=== PATIENT | male | born 1975 | race Caucasian/White ===

== ENCOUNTER 2017-01-06 18:18 | Inpatient (IN) | payer OTHER ==
--- NOTE | ~2017-01-06 | EKG ---
PATIENT: MICHAEL AN UNIT #: [id number] Ventricular Rate: 96 BPM Atrial Rate: 96 BPM P-R Interval: 206 ms QRS Duration: 102 ms Q-T Interval: 406 ms QTC Calculation(Bezet): 512 ms P [place]: 60 degrees Calculated R [place]: 21 degrees Calculated T [place]: 48 degrees Diagnosis Line: Normal sinus rhythm Diagnosis Line: Minimal voltage criteria for LVH, may be normal Diagnosis Line: variant Diagnosis Line: Prolonged QT Diagnosis Line: Abnormal ECG Diagnosis Line: When compared with ECG of 07-JAN-2017 07:26, Diagnosis Line: (unconfirmed) Diagnosis Line: No significant change was found Diagnosis Line: Confirmed by ADAMA BEAL MD ([id number]) on Diagnosis Line: 01/08/2017 11:04:27 PM INTERPRETING MD: BLAZE
--- NOTE | ~2017-01-06 | CR63 ---
[facility] A Service of [facility] & [facility] RADIOLOGY TEXT RESULTS PATIENT: MICHAEL AN LOCATION: [facility] 316-01 : [birth year] UNIT #: [id number] AGE: [address]: Sahil To MD SEX: M ORDER DR: [id number] [facility] [address] [place] [address] [facility]. [place], [place] [address] [id number] I MR#: [id number] Acc #: [id number] NAME: MICHAEL AN : 1975 SEX: M STUDY DATE/TIME: 01/07/2017 9:15 UNIT: [address] ROOM: [facility] STUDY DESCRIPTION: CR Chest 2 View Attending Physician: Sahil To M.D. Ordering Physician: Jessie Ch M.D. Primary Care Physician: No Primary Care Physician MEDICAL IMAGING REPORT This report is preliminary unless electronic signature is present EXAM Chest, PA and lateral, 2 views. DATE OF STUDY 01/08/2016 COMPARISON STUDIES 01/07/2016 CLINICAL HISTORY 1 day history of short of air and weakness. FINDINGS Persistent vascular congestion right greater than left. No effusion or pneumothorax or consolidation. Heart size upper limits of normal. No substantial change since 01/06/2017. Dictated by... Esau Malin M.D. THIS IS AN ELECTRONICALLY VERIFIED REPORT Esau Malin M.D. at 01/07/2017 3:49 PM TEV/raymond TD: 01/07/2017 11:37 JOB #: [id number] MEDICAL IMAGING REPORT Page 1 of 1 COPY
--- NOTE | ~2017-01-06 | DS ---
Unit #: [id number] #: [id number] Patient: MICHAEL AN [id number] [address] [place], [place] [address] [id number] I MR#: [id number] NAME: MICHAEL AN ROOM: 316 Age: 41 Sex: M Admission Date: 01/06/2017 : 1975 Discharge Date: 01/08/2017 Attending Physician: Sahil To M.D. Primary Care Physician: No Primary Care Physician DISCHARGE SUMMARY DISCHARGE DIAGNOSES 1. Unintentional overdose with fentanyl. 2. Acute hypoxic respiratory failure, resolved. 3. Likely aspiration pneumonia. 4. Elevated troponin. 5. Heroin abuse. 6. Acute kidney injury, prerenal in nature and is resolved at this time. 7. Elevated liver function test: Hepatitis panel is still pending at this time. CONSULTANTS None. PROCEDURES None. IMAGING Chest x-ray on January 06, 2017 - impression is borderline cardiac size with low lung volumes and probable generalized atelectasis. A repeat better inspiratory result frontal view of the departmental two-view chest would be recommended at this point when clinically appropriate given the limited nature of this exam. We have no comparisons. Two-view chest x-ray on 01/07. Findings - persistent vascular congestion, right greater than left. No effusion or pneumothorax or consolidation. Heart size upper limits of normal. No substantial change since 01/06/17. LABORATORY On the day of discharge, patient's labs include glucose 107, BUN 7, creatinine 0.9, sodium 136, potassium 4.2, chloride 105, CO2 24, calcium is 8.9, magnesium 2.1. CBC with WBC of 9.5, RBC 5.29, hemoglobin 14.5, hematocrit is 43.3, MCV is 81.9, MCH of 27.4, MCHC of 33.5, RDW is 14.3, platelets of 221, MPV of 3.9. HOSPITAL COURSE Patient is a 41-year-old male with no past medical history who was brought by EMS due to drug overdose. He was given 2 mg of IV Narcan and had received saline bolus. Patient, when awakened, admits to abusing heroin but states that he used a clean needle. Chest x-ray was done, worrisome for atelectasis versus pneumonia. A urine drug screen was positive for amphetamine. Patient was also noted to have increased creatinine on admission with 1.9. He was hypoxic with oxygen saturation documented at Unit #: [id number] #: [id number] Patient: MICHAEL AN 88% on admission. He was admitted for likely aspiration pneumonia and drug overdose. He was placed on empiric antibiotics with Zosyn. At this time blood culture, which was drawn, has been negative to date. Patient is no longer needing oxygen. Oxygen saturations are 98% to 100% on room air. Patient's initial troponin was detectable at 0.10 and has been trending down to 0.07 and stays at 0.06. It was felt that this was likely due to the illicit drugs the patient had been abusing. At this time, patient has no symptoms of nausea, vomiting, diarrhea nor chest pain. He is not requiring oxygen. He does not appear acutely ill. Have ordered an echo to be done. If this echo is normal, patient may be discharged home in stable condition. If this is abnormal in any way, we will obtain a cardiology consult. DISCHARGE ACTIVITIES None restricted. Patient may resume activities with ambulation every day as was prior to hospitalization. DIET None restricted. Patient may resume heart healthy diet as was prior to hospitalization. I have stressed to patient the need to abstain from IV drug use. DISCHARGE MEDICATIONS Levaquin 750 mg orally daily for the next seven days. PROGNOSIS Poor given poor insight into his actual medical problems at this time. Dictated by... Catherine Bridges PA-C for Hamida Santillan TD: 01/11/2017 07:34 JOB #: [id number] DISCHARGE SUMMARY Page 1 of 1 X X DISCHARGE SUMMARY
--- NOTE | ~2017-01-06 | CR72 ---
[facility] A Service of [facility] RADIOLOGY TEXT RESULTS PATIENT: MAK AN LOCATION: [facility] 316-01 : [birth year] UNIT #: [id number] AGE: [address]: Sahil To MD SEX: M ORDER DR: [id number] [address] [address] [id number] I MR#: [id number] Acc #: [id number] NAME: MAK AN : 1975 SEX: M STUDY DATE/TIME: 01/06/2017 18:00 UNIT: SEDOF ROOM: [facility] STUDY DESCRIPTION: CR Chest Single View Portable Attending Physician: Jessie Ch M.D. Ordering Physician: Magdalena Packer M.D. Primary Care Physician: No Primary Care Physician MEDICAL IMAGING REPORT This report is preliminary unless electronic signature is present. EXAM Frontal chest, 01/06/2017 INDICATIONS A 41-year-old male with cough, drug overdose, unconscious. No additional history available due to patient functional status. TECHNIQUE Frontal chest no comparisons. FINDINGS Cardiac silhouette is borderline in size. Lung volumes are low, and there is bronchovascular crowding. There is no distinct effusion or pneumothorax. Probable generalized atelectatic changes in the perihilar mid and lower lung zones bilaterally. IMPRESSION Borderline cardiac size with low lung volumes and probable generalized atelectasis. A repeat better inspiratory result frontal view or departmental two-view chest would be recommended for this patient when clinically appropriate given the limited nature of this exam. We have no comparisons. Dictated by... Mak Holt M.D. THIS IS AN ELECTRONICALLY VERIFIED REPORT Mak Holt M.D. at 01/07/2017 7:27 AM Devan [facility] A Service of [facility] & [facility] RADIOLOGY TEXT RESULTS PATIENT: MAK AN LOCATION: [facility] 316-01 : [birth year] UNIT #: [id number] AGE: [address]: Sahil To MD SEX: M ORDER DR: TD: 01/06/2017 20:42 JOB #: [id number] MEDICAL IMAGING REPORT Page 1 of 1
--- NOTE | ~2017-01-06 | EKG ---
PATIENT: MICHAEL AN UNIT #: [id number] Ventricular Rate: 77 BPM Atrial Rate: 77 BPM P-R Interval: 148 ms QRS Duration: 110 ms Q-T Interval: 436 ms QTC Calculation(Bezet): 493 ms P [place]: 59 degrees Calculated R [place]: 32 degrees Calculated T [place]: 53 degrees Diagnosis Line: Normal sinus rhythm Diagnosis Line: Minimal voltage criteria for LVH, may be normal Diagnosis Line: variant Diagnosis Line: Borderline ECG Diagnosis Line: No previous ECGs available Diagnosis Line: Confirmed by ADAMA BEAL MD ([id number]) on Diagnosis Line: 01/08/2017 11:00:42 PM INTERPRETING MD: BLAZE
--- NOTE | ~2017-01-06 | HP ---
Unit #: [id number] #: [id number] Patient: MICHAEL AN [id number] [address] [place], [place] [address] [id number] I MR#: [id number] NAME: MICHAEL AN ROOM: 316 Age: 41 Sex: M Admission Date: 01/06/2017 : 1975 Attending Physician: Jessie Ch M.D. Primary Care Physician: Primary Care Physician No HISTORY AND PHYSICAL CHIEF COMPLAINT Unintentional opiate overdose. HISTORY OF PRESENT ILLNESS This 41-year-old male who has a history of polysubstance abuse, was transferred from [facility] emergency department following an overdose. Patient is somnolent, and I have to prompt him many times to awaken and answer my questions. He abuses heroin, uses clean needles. Initially, he stated he only used intermittently, but later stated that he uses on a daily basis. He was given a substance today which he injected. I am not sure what transpired afterward. All that I know is that EMS was called who administered 4 mg of nasal Narcan. He was taken to [facility] emergency department at about 4:50 p.m. this afternoon where he required another 2 mg of IV Narcan. He was treated with 2 liters of saline bolus and given a dose of Zosyn for a possibly abnormal chest x-ray. Urine toxicology screen is only positive for amphetamines. I asked the patient about this, and he believes that the opiate that he was given today was different than his usual heroin. I am suspicious that he could have been given fentanyl. Labs show acute kidney injury, an elevated LFTs along with an elevated white blood cell count. Chest x-ray is equivocal. PAST MEDICAL HISTORY 1. Polysubstance abuse. 2. Previous concussions. ALLERGIES None. HOME MEDICATIONS None. SOCIAL HISTORY The patient tells me that he lives with his mother. He smokes one pack per day of tobacco. He drinks three beers on a weekly basis and has been abusing drugs since his 20s. Currently is injecting heroin with clean needles. It sounds as if this is being done on a daily basis. FAMILY HISTORY Really difficult to obtain as patient is somnolent. REVIEW OF SYSTEMS Impossible to obtain as patient is somnolent and I have to prompt him many times to answer questions. Unit #: [id number] #: [id number] Patient: MICHAEL AN PHYSICAL EXAMINATION VITAL SIGNS: Temperature 98.7, pulse 83, respirations 16, blood pressure 125/92, O2 saturation 97% on 2 liters of oxygen. He was requiring 4 liters of oxygen to keep his O2 saturations to 93% at [facility] ER. GENERAL: Somnolent but arousable 41-year-old male who currently is in no acute distress. HEENT: Pupils are constricted. Pupils do react. Extraocular muscles are intact. Pharynx is benign. NECK: Supple without adenopathy or thyromegaly. CHEST: Clear. HEART: Normal S1, S2 without murmur. ABDOMEN: Bowel sounds are present. No hepatosplenomegaly, tenderness or masses. EXTREMITIES: Without edema. Pedal pulses are present. There are old track craig noted over the antecubital regions bilaterally. No splinter hemorrhages noted over the fingernail beds. NEUROLOGIC: Patient is somnolent but does arouse, answers questions, then dozes back to sleep. His cranial nerves are intact. He has equal strength throughout. DIAGNOSTIC STUDIES LABORATORY: Hematocrit 48.5, white blood cell count 26.5, normal platelet count. SMA-12 glucose 124, creatinine 1.9 without previous values for comparison. AST 231, ALT 233, alkaline phosphatase 133. CPK is normal. Acetaminophen, salicylate and alcohol levels are all negligible. Urine toxicology screen positive for amphetamines. Urinalysis 1+ protein, otherwise negative. IMAGING: Chest x-ray shows low lung volumes, borderline cardiomegaly, generalized atelectasis. ASSESSMENT 1. Unintentional overdose. Patient received an unknown type of opiate, could be fentanyl as the urine toxicology screen is negative and amphetamines are positive on his urine toxicology screen. Will repeat the urine toxicology screen however. Again, if negative for opiates, then likely he was given fentanyl. 2. Acute kidney injury. 3. Elevated LFTs. 4. Polysubstance abuse. PLAN 1. IV fluids. 2. Repeat chest x-ray in the morning. 3. Will continue Zosyn for now to cover for possible aspiration pneumonia. 4. Check hepatitis profile, HIV, and repeat labs in the morning. 5. Repeat urine toxicology screen. 6. SCDs for DVT prophylaxis. 7. When awake and alert, will start medications for opiate withdrawal if needed. 8. Patient declines help at present for his drug abuse. States that he will "think about it." Unit #: [id number] #: [id number] Patient: MICHAEL AN Dictated by Tarsha Schroeder M.D. AML/cs TD: 01/06/2017 23:21 JOB #: [id number] HISTORY AND PHYSICAL Page 1 of 1 X Tarsha Schroeder MD X HISTORY AND PHYSICAL
[2017-01-06 17:30] LABS: URINE SOURCE CLEAN CATCH
[2017-01-06 17:32] LABS: BASOPHIL% 0.1 % (0-2.5); HEMATOCRIT 48.5 % (38.0-50.0); HEMOGLOBIN 16.2 gm/dL (13.0-16.0); LYMPHOCYTE# 1.1 X10e3 (1.0-3.5); LYMPHOCYTE% 4.2 % (17.0-45.0); MEAN CORPUSCULAR HEMOGLOBIN 27.6 PG (28-34); MEAN CORPUSCULAR HGB CONC 33.3 g/dL (30-36); MEAN PLATELET VOLUME 8.1 FL (6.5-11.5); MONOCYTE# 2.3 X10e3 (0-1.0); MONOCYTE% 8.5 % (3.0-12.0); NEUTROPHIL# 23.1 X10e3 (1.5-7.1); NEUTROPHIL% 87.2 % (40-75); PLATELET COUNT 305 X10e3 (140-420); RED BLOOD COUNT 5.84 X10e (3.90-5.60); RED CELL DISTRIBUTION WIDTH 13.8 % (11.0-15.5); WHITE BLOOD COUNT 26.5 X10e3 (4.0-10.5)
[2017-01-06 17:34] LABS: URINE APPEARANCE SL CLOUDY; URINE BILIRUBIN NEG (NEG); URINE BLOOD NEG (NEG); URINE COLOR YELLOW; URINE GLUCOSE NEG (NORM); URINE KETONE NEG (NEG); URINE LEUKOCYTE ESTERASE NEG (NEG); URINE NITRATE NEG (NEG); URINE PROTEIN 1+ (NEG)
[2017-01-06 17:35] LABS: MICRO INDICATED? YES
[2017-01-06 17:35] LABS: DIFF IND YES
[2017-01-06 17:43] LABS: URINE RBC 0-2 /[HPF] (0-2); URINE WBC 0-2 /[HPF] (0-5)
[2017-01-06 17:44] LABS: AMPHETAMINE POS (NEG); BARBITURATES NEG (NEG); BENZODIAZEPINES NEG (NEG); COCAINE NEG (NEG); CULTURE INDICATED? NO; MARIJUANA NEG (NEG); OPIATES NEG (NEG); TRICYCLIC ANTIDEPRESSANTS NEG (NEG); U METHADONE NEG (NEG); URINE BACTERIA NEG (NEG)
[2017-01-06 17:53] LABS: PLATELET ESTIMATE NORMAL (NORMAL); RBC NORMAL YES
[2017-01-06 17:55] LABS: ALBUMIN SERUM 4.4 g/dL (3.5-5.0); ALKALINE PHOSPHATASE 133 U/L (32-92); ALT (SGPT) 233 U/L (10-40); AST (SGOT) 231 U/L (10-42); BILIRUBIN, DIRECT 0.1 mg/dL (0.0-0.2); BILIRUBIN,INDIRECT 0.5 mg/dL (0.0-0.9); BILIRUBIN,TOTAL 0.6 mg/dL (0.2-2.0); BLOOD UREA NITROGEN 21 mg/dL (9-23); BUN/CREATININE RATIO 11.05; CALCIUM SERUM 9.2 mg/dL (8.4-10.2); CARBON DIOXIDE 24 mmol/L (22-31); CHLORIDE 103 mmol/L (100-111); CREATININE SERUM 1.9 mg/dL (0.6-1.4); GLOM FILT RATE Estimated 43.1 mL/min (>60); GLUCOSE FASTING 124 mg/dL (70-110); POTASSIUM 3.8 mmol/L (3.5-5.1); PROTEIN TOTAL SERUM 7.6 g/dL (6.0-8.3); SALICYLATE <4.0 mg/dL; SODIUM 141 mmol/L (135-145)
[2017-01-06 17:57] LABS: ACETAMINOPHEN <10 ug/mL; ALCOHOL BLOOD <5 mg/dL (0)
[~2017-01-06 18:18] MED LIST: ERYTHROMYCIN O3.5 GM OU; NO MEDICATIONS; TYLENOL #3 PO
[2017-01-07 02:25] LABS: AMPHETAMINE POS (NEG); BARBITURATES NEG (NEG); BENZODIAZEPINES NEG (NEG); COCAINE NEG (NEG); MARIJUANA NEG (NEG); OPIATES POS (NEG); TRICYCLIC ANTIDEPRESSANTS NEG (NEG); U METHADONE NEG (NEG)
[2017-01-07 06:22] LABS: BASOPHIL# 0.1 X10e3 (0-0.3); BASOPHIL% 0.5 % (0-2.5); EOSINOPHIL# 0.1 X10e3 (0-0.7); EOSINOPHIL% 0.6 % (0.0-7.0); HEMATOCRIT 41.6 % (38.0-50.0); LYMPHOCYTE# 3.2 X10e3 (1.0-3.5); LYMPHOCYTE% 26.6 % (17.0-45.0); MEAN CELL VOLUME 83.2 FL (83-96); MEAN CORPUSCULAR HEMOGLOBIN 27.6 PG (28-34); MEAN CORPUSCULAR HGB CONC 33.1 g/dL (30-36); MEAN PLATELET VOLUME 8.6 FL (6.5-11.5); MONOCYTE# 0.9 X10e3 (0-1.0); MONOCYTE% 7.9 % (3.0-12.0); NEUTROPHIL# 7.6 X10e3 (1.5-7.1); NEUTROPHIL% 64.4 % (40-75); PLATELET COUNT 224 X10e3 (140-420); RED CELL DISTRIBUTION WIDTH 14.4 % (11.0-15.5)
[2017-01-07 06:28] LABS: DIFF IND NO; HEMOGLOBIN 13.8 gm/dL (13.0-16.0); WHITE BLOOD COUNT 11.9 X10e3 (4.0-10.5)
[2017-01-07 06:52] LABS: PARTIAL THROMBOPLASTIN TIME 24.7 SECONDS (23.5-31.3); PROTHROMBIN TIME (PATIENT) 10.3 SECONDS (9.6-11.5)
[2017-01-07 07:09] LABS: ALBUMIN SERUM 3.6 g/dL (3.5-5.0); BILIRUBIN,TOTAL 0.8 mg/dL (0.2-2.0); BUN/CREATININE RATIO 14.16; CALCIUM SERUM 8.1 mg/dL (8.4-10.2); CREATININE SERUM 1.2 mg/dL (0.6-1.4); GLOM FILT RATE Estimated 75.2 mL/min (>60); POTASSIUM 3.4 mmol/L (3.5-5.1)
[2017-01-07 07:30] LABS: %MB 3.8 % (0.0-4.0); MB 5.3 ng/ml
[2017-01-07 13:01] LABS: PROCALCITONIN 4.29 NG/ML
[2017-01-07 13:19] LABS: %MB 3.7 % (0.0-4.0); MB 5.2 ng/ml
[2017-01-07 18:32] LABS: %MB 3.5 % (0.0-4.0); MB 4.4 ng/ml
[2017-01-08 00:41] LABS: %MB 2.5 % (0.0-4.0); MB 2.7 ng/ml
[2017-01-08 05:16] LABS: HEMATOCRIT 43.3 % (38.0-50.0); HEMOGLOBIN 14.5 gm/dL (13.0-16.0); MEAN CELL VOLUME 81.9 FL (83-96); MEAN CORPUSCULAR HEMOGLOBIN 27.4 PG (28-34); MEAN CORPUSCULAR HGB CONC 33.5 g/dL (30-36); MEAN PLATELET VOLUME 8.7 FL (6.5-11.5); RED BLOOD COUNT 5.29 X10e (3.90-5.60); RED CELL DISTRIBUTION WIDTH 14.3 % (11.0-15.5); WHITE BLOOD COUNT 9.5 X10e3 (4.0-10.5)
[2017-01-08 06:24] LABS: BUN/CREATININE RATIO 7.77; CALCIUM SERUM 8.9 mg/dL (8.4-10.2); CREATININE SERUM 0.9 mg/dL (0.6-1.4); GLOM FILT RATE Estimated 106.5 mL/min (>60); MAGNESIUM 2.1 mg/dL (1.6-3.0); POTASSIUM 4.2 mmol/L (3.5-5.1)
[2017-01-08] MEDS ORDERED: LEVAQUIN750 M1 PO (14:13)
[2017-01-13 06:52] LABS: HA AB IGM (HEPPAN) Nonreactive (()); HB CORE AB IGM (HEPPAN) Nonreactive (Nonreactive); HB S AG (HEPPAN) Nonreactive (Nonreactive); HEP C AB (HEPPAN) Reactive (Nonreactive)
== END 2017-01-08 17:42 | disposition home or self-care (01) | DRG 917 ==
LOC: SED 18:18 → SEDOF 18:40 → C3A PCU 19:22
PROVIDERS: Family Medicine; Student in an Organized Health Care Education/Training Program
PROC: B24BYZZ Ultrasonography of Heart with Aorta using Other Contrast (ICD-10-PCS; principal; 2017-01-07)
DX: T40.4X1A Poisoning by other synthetic narcotics, accidental (unintentional), initial encounter (principal); J96.01 Acute respiratory failure with hypoxia; J69.0 Pneumonitis due to inhalation of food and vomit; N17.9 Acute kidney failure, unspecified; F11.10 Opioid abuse, uncomplicated; R79.89 Other specified abnormal findings of blood chemistry; F17.210 Nicotine dependence, cigarettes, uncomplicated
CPT/HCPCS: 36415; 71010; 71020; 80048; 80053; 80074; 80076; 80307; 81003; 82308; 82550; 82553; 83735; 84484; 85025; 85027; 85610; 85730; 87040; 87522; 87806; 93005; 93306; 94760; 96361; 96374; 99285; G0480; J2543